=== PATIENT | female | born 1945 | race Hispanic/Latino ===

== ENCOUNTER 2018-11-17 11:02 | Emergency (ER) | payer OTHER ==
--- OUTSIDE RECORDS SUMMARY | 2018-11-17 11:04 | XMS REPORT | Clinical Summary ---
:1945 Author Organization [facility] Address [address] [place] [address] Care Team Providers Name Role Phone yRan Cantu MD Primary Care Provider Allergies No Known Allergies Medications Medication Sig Dispensed Refills Start Date End Date Status metoprolol tartrate Take 50 mg by 0 Active (LOPRESSOR) 50 MG mouth 2 (two) tablet times a day. omeprazole (PriLOSEC) Take 20 mg by 0 Active 20 MG capsule mouth daily. Active Problems Not on file Social History Tobacco Use Types Packs/Day Years Used Date Current Every Day Smoker Cigarettes 0.5 25 Alcohol Use Drinks/Week oz/Week Comments No Sex Assigned at Date Recorded Not on file Job Start Date Occupation Industry Not on file Not on file Not on file Travel History Travel Start Travel End No recent travel history available. Last Filed Vital Signs Not on file Plan of Treatment Health Maintenance Due Date Last Done Comments BREAST CANCER SCREENING 1994 COLON CANCER SCREENING 1994 SHINGLES VACCINES (1 of 2) 1994 PNEUMOCOCCAL POLYSACCHARIDE VACCINE AGE 65 AND OVER 2009 PNEUMOCOCCAL-13 2009 INFLUENZA VACCINE 05/29/2018 Results Not on fileafter 11/16/2017 Insurance Payer Benefit Plan / Group Subscriber ID Type Phone Address MEDICARE MEDICARE PART A AND B xxxxxxxxxx Medicare [place], [place] ([place] [address] Advance Directives Patient has advance care planning documents on file. For more information, please contact:Edward Licea[address] [facility] [place] [address]
[2018-11-17] MEDS ORDERED: ALBUTEROL 2.5 MG/3 ML NEB SOL ONE (11:48)
--- NOTE | 2018-11-17 12:10 | RAD REPORT ---
EXAM DESCRIPTION: RAD - Chest Pa And Lat (2 Views) - 11/17/2018 11:53 am CLINICAL HISTORY: Cough, shortness of breath, fever COMPARISON: September 2012 TECHNIQUE: PA and lateral views of the chest were obtained. FINDINGS: The lungs are clear. Extensively fibrotic with the fibrotic pattern progressive from 2011 . No focal consolidations seen. Diaphragm is flattened. Costophrenic angle blunting is present. Heart size is normal and central vasculature is within normal limits. No pleural effusion or pneumothorax seen. No acute bony finding noted. No aortic abnormality. IMPRESSION: Fibrotic an obstructive lung changes are present progressive from 2011. No focal acute finding.
[2018-11-17] MEDS ORDERED: predniSONE 20 MG TAB ONE (12:56)
--- NOTE | 2018-11-17 13:21 | ER ---
Nurse's Notes [facility] Name: Ann Matos Age: 72 yrs Sex: Female : 1945 Arrival Date: 11/17/2018 Time: 11:05 Bed 19 Private MD: Diagnosis: Bronchitis, not specified as acute or chronic Presentation: 11/17 11:09 Presenting complaint: Patient states: SOB and cough for 5 days. Denies fever. aj Transition of care: patient was not received from another setting of care. Onset of symptoms was November 12, 2018. Risk Assessment: Do you want to hurt yourself or someone else? Patient reports no desire to harm self or others. Initial Sepsis Screen: Does the patient meet any 2 criteria? No. Patient's initial sepsis screen is negative. Does the patient have a suspected source of infection? No. Patient's initial sepsis screen is negative. Care prior to arrival: None. 11:09 Method Of Arrival: Ambulatory aj 11:09 Acuity: HOLLIE 2 aj Triage Assessment: 11:11 General: Appears in no apparent distress. comfortable, Behavior is calm, cooperative, aj appropriate for age. Pain: Denies pain. Neuro: Level of Consciousness is awake, alert, obeys commands, Oriented to person, place, time, situation, Appropriate for age. Cardiovascular: Capillary refill < 3 seconds in bilateral fingers. Respiratory: Reports shortness of breath cough that is Airway is patent Respiratory effort is unlabored, Respiratory pattern is tachypnea Onset: The symptoms/episode began/occurred gradually, the patient has mild shortness of breath. Derm: Skin is intact, is healthy with good turgor, Skin is pink, warm \T\ dry. normal. Historical: - Allergies: 11:11 No Known Allergies; aj - Home Meds: 11:11 Metoprolol Tartrate Oral [Active]; Omeprazole Oral [Active]; gabapentin oral oral aj [Active]; atorvastatin oral oral [Active]; Methimazole Oral [Active]; - PMHx: 11:11 Hypertension; Hyperlipidemia; aj - PSHx: 11:11 Hysterectomy; Cholecystectomy; aj - Immunization history:: Adult Immunizations not up to date. - Social history:: Smoking status: Patient uses tobacco products, smokes one-half pack cigarettes per day, smokes one pack cigarettes per day. - Ebola Screening: : Patient negative for fever greater than or equal to 101.5 degrees Fahrenheit, and additional compatible Ebola Virus Disease symptoms Patient denies exposure to infectious person Patient denies travel to an Ebola-affected area in the 21 days before illness onset No symptoms or risks identified at this time. Screenin:35 Abuse screen: Denies threats or abuse. Nutritional screening: No deficits noted. em Tuberculosis screening: No symptoms or risk factors identified. Fall Risk None identified. Assessment: 11:35 General: Appears in no apparent distress. comfortable, Behavior is calm, cooperative, em Denies fever. Pain: Denies pain. Neuro: Level of Consciousness is awake, alert, obeys commands, Oriented to person, place, time, situation. Cardiovascular: Patient's skin is warm and dry. Rhythm is regular. Respiratory: Reports shortness of breath on exertion cough that is productive, pain with cough Airway is patent Respiratory effort is even, unlabored, Respiratory pattern is regular, symmetrical, Breath sounds are clear bilaterally. Onset: The symptoms/episode began/occurred 5 days. GI: No signs and/or symptoms were reported involving the gastrointestinal system. Derm: Skin is intact, is thin, Skin is pink, warm \T\ dry. 11:35 Reassessment: I agree with assessment completed by MIRELA Mas aa5 12:30 Reassessment: Patient appears in no apparent distress at this time. Patient and/or em family updated on plan of care and expected duration. Pain level reassessed. Patient is alert, oriented x 3, equal unlabored respirations, skin warm/dry/pink. Patient states feeling better. 13:56 Reassessment: Patient appears in no apparent distress at this time. Patient and/or em family updated on plan of care and expected duration. Pain level reassessed. Patient is alert, oriented x 3, equal unlabored respirations, skin warm/dry/pink. Patient denies pain at this time. Patient states feeling better. Vital Signs: 11:11 BP 197 / 76; Pulse 70; Resp 22; Temp 97.2; Pulse Ox 94% on R/A; Weight 63.5 kg; Height aj 5 ft. 6 in. (167.64 cm); 11:35 BP 149 / 89; Pulse 54; Resp 20; Pulse Ox 97% on R/A; em 12:30 BP 159 / 84; Pulse 53; Resp 18; Pulse Ox 97% on R/A; Pain 0/10; em 13:30 BP 161 / 68; Pulse 55; Resp 18; Pulse Ox 98% on R/A; Pain 0/10; em 11:11 Body Mass Index 22.60 (63.50 kg, 167.64 cm) ED Course: 11:05 Patient arrived in ED. mr 11:10 Triage completed. aj 11:11 Arm band placed on left wrist. Patient placed in an exam room. aj 11:13 Rajendra Luna NP is PHCP. pm1 11:13 Josh Maki MD is Attending Physician. pm1 11:15 Wiliam Canela LVN is Primary Nurse. em 11:33 Flu and/or RSV swab sent to lab. Strep swab sent to lab. ms 11:35 Patient has correct armband on for positive identification. Bed in low position. Call em light in reach. Adult w/ patient. Pulse ox on. NIBP on. 11:35 Patient maintains SpO2 saturation greater than 95% on room air. em 13:55 No provider procedures requiring assistance completed. Patient did not have IV access em during this emergency room visit. Administered Medications: 12:08 Drug: Albuterol 2.5 mg Route: Inhalation; em 12:54 Drug: predniSONE 60 mg Route: PO; em 13:55 Follow up: Response: No adverse reaction em 13:50 Drug: Rocephin (cefTRIAXone) 1 grams Route: IM; Site: right gluteus; em 13:52 Follow up: Response: Medication administered at discharge. em Outcome: 13:20 Discharge ordered by MD. pm1 13:55 Discharged to home ambulatory, with family. em 13:55 Condition: good 13:55 Discharge instructions given to patient, family, Instructed on discharge instructions, follow up and referral plans. medication usage, Demonstrated understanding of instructions, follow-up care, medications, Prescriptions given X 4. 13:57 Patient left the ED. em Signatures: Dilcia Leal, RN Sury Avina Wiliam Canela LVN LVN em Bernadette Hernandez ms KwonChelo RN Rajendra Carlos, JOSE ALFREDO FLOORMAN pm1
--- NOTE | 2018-11-17 13:21 | EDPHYS ---
Physician Documentation [facility] Name: Ann Matos Age: 72 yrs Sex: Female : 1945 Arrival Date: 11/17/2018 Time: 11:05 Bed 19 Private MD: ED Physician Josh Maki HPI: 11/17 12:00 This 72 yrs old Female presents to ER via Ambulatory with complaints of pm1 Shortness Of Breath, Cough. 12:00 The patient has shortness of breath at rest. Onset: The symptoms/episode began/occurred pm1 5 day(s) ago. Duration: The symptoms are continuous, and are unchanged since they started. The patient's shortness of breath is aggravated by nothing, is alleviated by nothing. Associated signs and symptoms: Pertinent positives: productive cough, Pertinent negatives: chest pain, dizziness, fever, hemoptysis, nausea, vomiting. Severity of symptoms: Pain is currently a 0 / 10. The patient has not experienced similar symptoms in the past. The patient has not recently seen a physician. Patient with cough, congestion, and shortness of breath for 5 days. Patient smokes 1/2 pack per day. No chest pain. Historical: - Allergies: 11:11 No Known Allergies; aj - Home Meds: 11:11 Metoprolol Tartrate Oral [Active]; Omeprazole Oral [Active]; gabapentin oral oral aj [Active]; atorvastatin oral oral [Active]; Methimazole Oral [Active]; - PMHx: 11:11 Hypertension; Hyperlipidemia; aj - PSHx: 11:11 Hysterectomy; Cholecystectomy; aj - Immunization history:: Adult Immunizations not up to date. - Social history:: Smoking status: Patient uses tobacco products, smokes one-half pack cigarettes per day, smokes one pack cigarettes per day. - Ebola Screening: : Patient negative for fever greater than or equal to 101.5 degrees Fahrenheit, and additional compatible Ebola Virus Disease symptoms Patient denies exposure to infectious person Patient denies travel to an Ebola-affected area in the 21 days before illness onset No symptoms or risks identified at this time. ROS: 12:00 Constitutional: Negative for fever, chills, and weight loss, Eyes: Negative for injury, pm1 pain, redness, and discharge, ENT: Negative for injury, pain, and discharge, Neck: Negative for injury, pain, and swelling, Cardiovascular: Negative for chest pain, palpitations, and edema. 12:00 Abdomen/GI: Negative for abdominal pain, nausea, vomiting, diarrhea, and constipation, Back: Negative for injury and pain, : Negative for injury, bleeding, discharge, and swelling, MS/Extremity: Negative for injury and deformity, Skin: Negative for injury, rash, and discoloration, Neuro: Negative for headache, weakness, numbness, tingling, and seizure. 12:00 Respiratory: Positive for cough, shortness of breath, Negative for sputum production, wheezing. Exam: 12:00 Constitutional: This is a well developed, well nourished patient who is awake, alert, pm1 and in no acute distress. Head/Face: Normocephalic, atraumatic. Eyes: Pupils equal round and reactive to light, extra-ocular motions intact. Lids and lashes normal. Conjunctiva and sclera are non-icteric and not injected. Cornea within normal limits. Periorbital areas with no swelling, redness, or edema. ENT: Nares patent. No nasal discharge, no septal abnormalities noted. Tympanic membranes are normal and external auditory canals are clear. Oropharynx with no redness, swelling, or masses, exudates, or evidence of obstruction, uvula midline. Mucous membranes moist. Neck: Trachea midline, no thyromegaly or masses palpated, and no cervical lymphadenopathy. Supple, full range of motion without nuchal rigidity, or vertebral point tenderness. No Meningismus. Chest/axilla: Normal chest wall appearance and motion. Nontender with no deformity. No lesions are appreciated. Cardiovascular: Regular rate and rhythm with a normal S1 and S2. No gallops, murmurs, or rubs. No pulse deficits. Abdomen/GI: Soft, non-tender, with normal bowel sounds. No distension or tympany. No guarding or rebound. No evidence of tenderness throughout. Back: No spinal tenderness. No costovertebral tenderness. Full range of motion. Skin: Warm, dry with normal turgor. Normal color with no rashes, no lesions, and no evidence of cellulitis. MS/ Extremity: Pulses equal, no cyanosis. Neurovascular intact. Full, normal range of motion. 12:00 Respiratory: the patient does not display signs of respiratory distress, Respirations: normal, Breath sounds: wheezing: expiratory that is mild, is heard diffusely. 12:00 Neuro: Orientation: is normal, Motor: is normal, moves all fours, Gait: is steady, at a normal pace, without difficulty. Vital Signs: 11:11 BP 197 / 76; Pulse 70; Resp 22; Temp 97.2; Pulse Ox 94% on R/A; Weight 63.5 kg; Height aj 5 ft. 6 in. (167.64 cm); 11:35 BP 149 / 89; Pulse 54; Resp 20; Pulse Ox 97% on R/A; em 12:30 BP 159 / 84; Pulse 53; Resp 18; Pulse Ox 97% on R/A; Pain 0/10; em 13:30 BP 161 / 68; Pulse 55; Resp 18; Pulse Ox 98% on R/A; Pain 0/10; em 11:11 Body Mass Index 22.60 (63.50 kg, 167.64 cm) aj MDM: 11:13 Patient medically screened. pm1 13:15 ED course: Patient reports resolution of shortness of breath with breathing treatment. pm1 13:17 Data reviewed: vital signs. Data interpreted: Pulse oximetry: on room air is 97 %. pm1 Interpretation: normal. Counseling: I had a detailed discussion with the patient and/or guardian regarding: the historical points, exam findings, and any diagnostic results supporting the discharge/admit diagnosis, lab results, radiology results, the need for outpatient follow up, to return to the emergency department if symptoms worsen or persist or if there are any questions or concerns that arise at home. 11/17 11:26 Order name: Flu pm1 11/17 11:26 Order name: Strep pm11/17 11:26 Order name: Chest Pa And Lat (2 Views) XRAY pm1 11/17 11:49 Order name: Group A Streptococcus Rapid Sc; Complete Time: 11:57 EDMS 11/17 11:54 Order name: Influenza Screen (A ; Complete Time: 11:57 EDMS 11/17 12:10 Order name: RAD; Complete Time: 12:37 EDMS Administered Medications: 12:08 Drug: Albuterol 2.5 mg Route: Inhalation; em 12:54 Drug: predniSONE 60 mg Route: PO; em 13:55 Follow up: Response: No adverse reaction em 13:50 Drug: Rocephin (cefTRIAXone) 1 grams Route: IM; Site: right gluteus; em 13:52 Follow up: Response: Medication administered at discharge. em Disposition: 11/17/18 13:20 Discharged to Home. Impression: Bronchitis, not specified as acute or chronic. - Condition is Stable. - Discharge Instructions: How to Use an Inhaler, Steps to Quit Smoking, Chronic Obstructive Pulmonary Disease Exacerbation, Cough, Adult. - Prescriptions for Zithromax Z- Regan 250 mg Oral Tablet - take 1 tablet by ORAL route as directed for 5 days Day 1 - take two (2) tablets one time. Day 2, 3, 4 , 5 take one (1) tablet once daily.; 6 tablet. Medrol (Regan) 4 mg Oral Tablets, Dose Pack - take 1 tablet by ORAL route as directed - follow package instructions; 1 packet. Albuterol Sulfate 90 mcg/actuation - inhale 1-2 puff by INHALATION route every 4-6 hours; 1 Inhaler. Guaifenesin AC 10- 100 mg/5 mL Oral Liquid - take 10 milliliter by ORAL route every 4 hours As needed; 240 milliliter. - Medication Reconciliation Form, Thank You Letter, Antibiotic Education, Prescription Opioid Use form. - Follow up: Emergency Department; When: As needed; Reason: Worsening of condition. Follow up: Private Physician; When: 2 - 3 days; Reason: Recheck today's complaints, Continuance of care, Re-evaluation by your physician. - Problem is new. - Symptoms have improved. Addendum: 11/19/2018 03:33 Co-signature as Attending Physician, Josh Maki MD I agree with the assessment and t w4 plan of care. Signatures: Dispatcher [employer] Dilcia Chiu RN RN aj Munoz, Edgar, RENDERER RENDERER em Rajendra Luna, AUTOMOTIVE CUSTOMER EXPERIENCE ADVISOR AUTOMOTIVE CUSTOMER EXPERIENCE ADVISOR pm1 Josh Maki MD MD tw4 Corrections: (The following items were deleted from the chart) 11/17 13:57 13:20 11/17/2018 13:20 Discharged to Home. Impression: Bronchitis, not specified as em acute or chronic. Condition is Stable. Forms are Medication Reconciliation Form, Thank You Letter, Antibiotic Education, Prescription Opioid Use. Follow up: Emergency Department; When: As needed; Reason: Worsening of condition. Follow up: Private Physician; When: 2 - 3 days; Reason: Recheck today's complaints, Continuance of care, Re-evaluation by your physician. Problem is new. Symptoms have improved. pm1
[2018-11-17] MEDS ORDERED: LIDOCAINE 1% MPF 2 ML AMPULE ONE (13:55)
[2018-11-17] MEDS ORDERED: CEFTRIAXONE 1000 MG/VIAL ONE (13:55)
== END 2018-11-17 13:57 | disposition home or self-care (01) ==
LOC: ER 11:02
DX: J40 Bronchitis, not specified as acute or chronic (principal); I10 Essential (primary) hypertension; E78.5 Hyperlipidemia, unspecified; F17.210 Nicotine dependence, cigarettes, uncomplicated
CPT/HCPCS: 71046; 87070; 87081; 87804 ×2; J2001; J7512

== ENCOUNTER 2025-03-16 19:48 | Emergency (ER) | payer OTHER, SELFPAY ==
[2025-03-16] MEDS ORDERED: CEFTRIAXONE 1000 MG/VIAL ONE (22:15)
[2025-03-16] MEDS ORDERED: SMZ./TMP. 800/160 MG TABLET ONE (22:15)
[2025-03-16] MEDS ORDERED: HYDROCODONE/APAP 5/325 MG TAB ONE (22:15)
[2025-03-16] MEDS ORDERED: ONDANSETRON 4 MG (ODT) TAB ONE (22:15)
[2025-03-16 22:29] LABS: Absolute Eosinophils 0.1 K/uL (0-0.5); Absolute Lymphocytes (CBC) 2.4 K/uL (0.7-4.9); Absolute Monocytes 0.7 K/uL (0.1-1.3); Absolute Neutrophil 6.5 K/uL (1.8-8.0); Basophils % 0.2 % (0-1.3); Eosinophils % 0.5 % (0-4.4); Hematocrit 43.2 % (36.0-45.0); Hemoglobin 14.8 g/dL (12.0-15.0); Lymphocytes % 24.6 % (15.3-44.8); MCH 30.5 pg (27.0-35.0); MCHC 34.2 g/dL (32.0-36.0); MCV 89.3 fL (80-100); MPV 7.3 fL (7.6-11.3); Monocytes % 7.6 % (3.3-12.3); Neutrophils % 67.1 % (41.7-73.7); Nucleated Red Blood Cells % 0.1 % (0-0); Platelets 303 thou/uL (152-406); RBC Red Blood Cell Count 4.84 M/uL (3.86-4.86); Red Cell Distribution Width 15.9 % (12.1-15.2)
[2025-03-16 22:57] LABS: Albumin 3.7 g/dL (3.4-5.0); Bilirubin Total 0.4 mg/dL (0.2-1.0); Globulin 3.6 g/dL (2.3-3.5); Protein, Total 7.3 g/dL (6.4-8.2)
--- NOTE | 2025-03-16 23:08 | EDPHYS ---
Physician Documentation [facility] Name: Ann Matos Age: 79 yrs Sex: Female : 1945 Arrival Date: 03/16/2025 Time: 19:48 Bed DX1 Private MD: ED Physician Mekhi Fernando HPI: 03/16 19:59 This 79 yrs old Female presents to ER via Unassigned with complaints of Wound sp4 Check. 03/17 19:19 79-year-old female presents with skin tear subacute onset several days ago to the right sp4 medial ankle. Patient reports pain redness and irritation around skin tear. Patient currently on Bactrim and clindamycin. Patient states she visited a doctor in [place] who prescribed Bactrim clindamycin and also antibiotic ointment to be applied to the right ankle skin tear. At this time patient reports moderate to severe pain around the skin tear. 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 - Family history:: not pertinent. ROS: 19:19 Constitutional: Negative for fever, chills, and weight loss, positive right medial sp4 ankle skin tear associated with right ankle pain redness and tenderness. 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 Right ankle medial surface around medial malleolus there is a small skin tear with associated redness. Skin tear appears partially healed with granulation tissue. No sign of significant swelling or cellulitis. 19:19 Head/Face: Normocephalic, atraumatic. Eyes: Pupils equal round and reactive to light, extra-ocular motions intact. Lids and lashes normal. Conjunctiva and sclera are not injected. Cornea within normal limits. Periorbital areas with no swelling, redness, or edema. ENT: Nares patent. No nasal discharge, no septal abnormalities noted. Tympanic membranes are normal and external auditory canals are clear. Oropharynx with no redness, swelling, or masses, exudates, or evidence of obstruction, uvula midline. Mucous membranes moist. Neck: Trachea midline, no thyromegaly or masses palpated, and no cervical lymphadenopathy. Supple, full range of motion without nuchal rigidity, or vertebral point tenderness. Chest/axilla: Normal chest wall appearance and motion. Nontender with no deformity. No lesions are appreciated. Cardiovascular: Regular rate and rhythm with a normal S1 and S2. No gallops, murmurs, or rubs. Normal PMI, no JVD. No pulse deficits. Respiratory: Lungs have equal breath sounds bilaterally, clear to auscultation and percussion. No rales, rhonchi or wheezes noted. No increased work of breathing, no retractions or nasal flaring. Abdomen/GI: Soft, with normal bowel sounds. No distension or tympany. No guarding or rebound. No evidence of tenderness throughout. Back: No spinal tenderness. No costovertebral tenderness. Skin: Warm, dry with normal turgor. Normal color with no rashes, no lesions, positive subacute appearing skin tear to the right medial ankle around the right medial malleolus. No sign of bleeding, mild irritation without signs of significant cellulitis. No swelling. Normal peripheral pulses. Healthy appearing granulation tissue in the skin tear. No suturable lacerations. MS/ Extremity: Pulses equal, no cyanosis. Neurovascular intact. Full, normal range of motion. Neuro: Awake and alert, GCS 15, oriented to person, place, time, and situation. Cranial nerves II-XII grossly intact. Motor strength 5/5 in all extremities. Sensory grossly intact. Psych: Awake, alert, with orientation to person, place and time. Behavior, mood, and affect are within normal limits Vital Signs: 03/16 20:21 BP 176 / 79; Pulse 80; Resp 18; Temp 97.2; Pulse Ox 98% on 2 lpm NC; Weight 54.43 kg; br2 Height 5 ft. 6 in. ; Pain 10/10; 20:21 Body Mass Index 19.37 (54.43 kg, 167.64 cm) br2 20:21 Pain Scale: Adult br2 [place] Coma Score: 03/17 19:19 Eye Response: spontaneous(4). Motor Response: obeys commands(6). Verbal Response: sp4 oriented(5). Total: 15. Procedures: 19:19 Performed Wound care to the right ankle. Subacute appearing skin tear to the right sp4 ankle was irrigated with saline coated with Xeroform gauze and wrapped with Kerlix.. MDM: 03/16 20:01 Medical Screening Exam initiated sp4 03/17 19:19 Differential diagnosis: cellulitis, Skin tear, skin laceration, DVT, skin abscess. Data sp4 reviewed: vital signs, nurses notes, lab test result(s), CBC, electrolytes, hepatic panel. Consideration of Admission/Observation Escalation of care including admission/observation considered. ED course: CBC and CMP are unremarkable. Patient advised to continue local wound care with Xeroform ointment, irrigation and cool showers with antibacterial soap. Additionally Bactrim prescribed for the next 14 days. Advised to discontinue clindamycin. Also prescribed hydrocodone 10 -325 p.o. every 8 hours as needed pain.. 03/16 20:25 Order name: CBC with Diff; Complete Time: 23:02 sp4 03/16 20:25 Order name: CMP; Complete Time: 23:02 sp4 03/16 20:26 Order name: Wound Care; Complete Time: 22:11 sp4 03/16 20:26 Order name: Saline Lock; Complete Time: 22:10 sp4 Administered Medications: 03/16 22:23 Drug: Rocephin - Rocephin (cefTRIAXone) IVPB 1 grams IVPB once over 30 mins; (mix in 50 vc1 mL NS) Route: IVPB; Infused Over: 30 mins; Site: left antecubital; 23:25 Follow up: Response: No adverse reaction kl 22:23 Drug: Trimethoprim-Sulfamethoxazole PO (160 mg-800 mg (DS) 1 tablet PO once Route: PO; vc1 23:25 Follow up: Response: No adverse reaction kl 22:24 Drug: HYDROcodone-acetaminophen PO 5 mg-325 mg 2 tabs PO once Route: PO; vc1 22:24 Drug: Ondansetron PO 4 mg PO once Route: PO; vc1 Disposition: 03/17 19:19 Chart complete. sp4 Disposition Summary: 03/16/25 23:07 Discharge Ordered Notes: Location: Home sp4 Problem: new sp4 Symptoms: have improved sp4 Condition: Stable sp4 Diagnosis - Acute right medial ankle skin tear, acute right ankle cellulitis secondary to sp4 infected skin tear Followup: sp4 - With: Private Physician - When: 7 - 10 days - Reason: Recheck today's complaints Discharge Instructions: - Discharge Summary Sheet sp4 - Cellulitis, Adult, [id number] sp4 - Skin Tear, [id number] sp4 Forms: - Patient Portal Instructions sp4 Prescriptions: - naproxen 250 mg Oral tablet - take 1 tablet ORAL route 2 times per day PRN pain; 50 tablet; Refills: 0, sp4 Product Selection Permitted - Bactrim DS 800-160 mg Oral tablet - take 1 tablet ORAL route every 12 hours for 14 days; 28 tablet; Refills: 0, sp4 Product Selection Permitted Signatures: Dispatcher [employer] Lyla Sarmiento RN RN vc1 Mekhi Fernando MD MD sp4 Denise Hawley RN kl
--- NOTE | 2025-03-16 23:08 | ER ---
Nurse's Notes [facility] Name: Ann Matos Age: 79 yrs Sex: Female : 1945 Arrival Date: 03/16/2025 Time: 19:48 Bed DX1 Private MD: Diagnosis: Acute right medial ankle skin tear, acute right ankle cellulitis secondary to infected skin tear Presentation: 03/16 20:21 Chief complaint: Patient states: ABRASION TO RIGHT MEDIAL ANKLE THAT ISN'T HEALING br2 (January). PT IS ON BACTRIM AND AZITHROMYCIN. Coronavirus screen: Client denies travel out of the [place] in the last 14 days. Ebola Screen: Patient denies exposure to infectious person. Initial Sepsis Screen: Does the patient meet any 2 criteria? No. Patient's initial sepsis screen is negative. Does the patient have a suspected source of infection? No. Patient's initial sepsis screen is negative. Risk Assessment: Do you want to hurt yourself or someone else? Patient reports no desire to harm self or others. Onset of symptoms was February 25, 2025. 20:21 Method Of Arrival: Ambulatory br2 20:21 Acuity: HOLLIE 4 br2 Triage Assessment: 20:21 General: Appears in no apparent distress. comfortable, Behavior is calm, cooperative. br2 Pain: Complains of pain in right ankle Pain currently is 10 out of 10 on a pain scale. - Family history:: not pertinent. Screenin:25 [facility] ED Fall Risk Assessment (Adult) History of falling in the last 3 months, including since admission No falls in past 3 months (0 pts) Confusion or Disorientation No (0 pts) Intoxicated or Sedated No (0 pts) Impaired Gait Yes (1 pt) Mobility Assist Device Used No (0 pt) Altered Elimination No (0 pt) Score/Fall Risk Level 0 - 2 = Low Risk Oriented to surroundings. Abuse screen: Denies threats or abuse. Nutritional screening: No deficits noted. Tuberculosis screening: No symptoms or risk factors identified. Assessment: 23:25 Reassessment: Patient appears in no apparent distress at this time. Vital Signs: 20:21 BP 176 / 79; Pulse 80; Resp 18; Temp 97.2; Pulse Ox 98% on 2 lpm NC; Weight 54.43 kg; br2 Height 5 ft. 6 in. ; Pain 10/; 20:21 Body Mass Index 19.37 (54.43 kg, 167.64 cm) br2 20:21 Pain Scale: Adult br2 [place] Coma Score: 03/17 19:19 Eye Response: spontaneous(4). Motor Response: obeys commands(6). Verbal Response: sp4 oriented(5). Total: 15. ED Course: 03/16 19:50 Patient arrived in ED. al6 19:59 Mekhi Fernando MD is Attending Physician. sp4 20:20 Maria M Robledo RN is Primary Nurse. br2 20:29 Triage completed. br2 22:10 Initial lab(s) drawn, by hi, sent to lab. Inserted saline lock: 20 gauge in left rk3 antecubital area, using aseptic technique. Blood collected. Flushed with 10 mL NS. 23:25 Bandage applied. kl Administered Medications: 22:23 Drug: Rocephin - Rocephin (cefTRIAXone) IVPB 1 grams IVPB once over 30 mins; (mix in 50 vc1 mL NS) Route: IVPB; Infused Over: 30 mins; Site: left antecubital; 23:25 Follow up: Response: No adverse reaction kl 22:23 Drug: Trimethoprim-Sulfamethoxazole PO (160 mg-800 mg (DS) 1 tablet PO once Route: PO; vc1 23:25 Follow up: Response: No adverse reaction 22:24 Drug: HYDROcodone-acetaminophen PO 5 mg-325 mg 2 tabs PO once Route: PO; vc1 22:24 Drug: Ondansetron PO 4 mg PO once Route: PO; vc1 Outcome: 23:07 Discharge ordered by . 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 medication usage, wound care, Demonstrated understanding of instructions, follow-up care, medications, wound care, Prescriptions given X 3, 23:27 Patient left the ED. kl Signatures: Denise Hawley RN RN kl [place], Vanessa, RN RN vc1 Mekhi Fernando MD MD spMaria M Washington RN RN br2 Ashley Marti al6 Vandana Gonzalez rk3
[2025-03-16 23:40] VITALS: BP 176/79; TEMP 97.2; O2SAT 98
== END 2025-03-16 23:27 | disposition home or self-care (01) ==
LOC: ER 19:48
DX: L03.115 Cellulitis of right lower limb (principal)
CPT/HCPCS: 85025; 36415; 80053; 96374; 99284; Q0162; J0696